=== PATIENT | female | born 1980 | race Two or more races ===

== ENCOUNTER 2018-02-13 13:53 | Emergency (ER) | payer OTHER ==
--- NOTE | 2018-02-13 14:36 | EDPHY ---
General - History Smoking Status: Never smoked Time Seen by Provider: 02/13/18 14:28 Narrative: CHIEF COMPLAINT: Left shoulder pain, left back HISTORY OF PRESENT ILLNESS: Patient presents with complaints of left shoulder and back pain status post injury 3 days ago. She says that she was at work that day when she was attempting to help with patient transfer when she felt a sudden onset of pain on the left side. At the left trapezius, shoulder and down the left back. Moderate to severe at this time. It was mild in the 1st day. She has been taking [id number] medications with no improvement. She has no chest pain or shortness of breath. She did not strike her head on anything. She has no numbness or tingling. No weakness. Minimal improvement rest. No other associated complaints or modifying factors. ESTABLISHED ORTHOPEDIST: None REVIEW OF SYSTEMS: Ten systems reviewed and are negative unless otherwise noted in the HPI PAST MEDICAL HISTORY: Diabetes mellitus PAST SURGICAL HISTORY: No recent surgery SOCIAL HISTORY: Nonsmoker. Lives and works here locally. FAMILY HISTORY: Noncontributory EXAMINATION General Appearance: Alert, no distress HEENT: Normocephalic atraumatic. Neck: Supple. No midline tenderness. There is soft tissue tenderness of the left trapezius and erector spine a region. No meningismus. Cardiovascular: Symmetric radial DP pulses 2+. Back: No crepitus, step-off or deformity. There is no midline tenderness of the thoracic or lumbar spine. There is paraspinous soft tissue tenderness in the left lumbar Neurological: A&O, sensory symmetric, strength symmetric of lower extremities including the great toes. Skin: Warm and dry, no rash. No petechiae or purpura. No ecchymosis. No cellulitis Extremities: Tenderness of the left trapezius and left deltoid that decreases with passive range of motion. Range of motion of shoulders is intact without apprehension. No bony tenderness of the left upper extremity otherwise. Psychiatric: Mood and affect normal DIFFERENTIAL DIAGNOSES: Including but not limited to be held rotator cuff injury, sprain, strain, fracture, trapezius strain, low back strain, low back fracture MDM: 2:30 p.m. With acute left shoulder and low back pain from strain or injury on Monday. She is neuro intact with no midline tenderness of the cervical thoracic spine. She does have some mild left lumbar paraspinous muscular tenderness. She has reproducible pain in the left shoulder over the deltoid and trapezius. I have ordered x-ray of the shoulder low back also ordered ibuprofen. She is in no acute distress with normal neuro examination 3:20 p.m. X-ray as read by me, without the aid of the radiologist, reveals no acute findings. 3:50 p.m. Patient re-evaluated. She is feeling better with the ibuprofen. I do not feel there are any bony abnormality on x-ray and I do feel she is stable for discharge home. I will treat her for soft tissue injury, likely strain and/or rotator cuff injury. She will be discharged with instructions to follow up with worker's compensation [facility] and I provided ED precautions. She is comfortable this plan and discharged home stable condition. 4:15 p.m. Lumbar x-ray has been read as negative for acute findings. The shoulder x-ray has been read as questionable AC widening. This does not clinically correlate with the patient's location of pain or the mechanism. I do feel she is stable for outpatient follow-up with worker's compensation further care. SUPERVISION: This patient was independently evaluated without direct involvement of or examination by the attending physician. ED Precautions: Worsening pain. Erythema, edema, cyanosis, pallor, paresthesia or anesthesia. (Benito Romo) Medical Decision Making: I did not see this patient while she was in the emergency department. However her care was discussed with the PA while the patient was in the department. I agree with treatment plan and management (Seth Kemp) - Diagnostics Imaging Results: Imaging Impressions Lumbar Spine X-Ray 02/13/18 14:36 Impression: 1. Normal lumbar spine 2. 2. Right upper quadrant calcification: Gallbladder or kidney 2. Left Shoulder , 3 Views History: Pain post lifting a heavy object. Findings: The humeral head is well rounded and normally located. No fracture or dislocation is identified. There is no soft tissue calcification or ossification. The coracoclavicular distance looks mildly widened as does the AC joint. There is a small spur projecting medially off the coracoid. Impression: 1, Mild widening of the AC joint of unknown chronicity. If clinically indicated comparison x-rays of the contralateral shoulder might be useful to assess for symmetry. 2. No fracture. Shoulder X-Ray 02/13/18 14:36 Impression: 1. Normal lumbar spine 2. 2. Right upper quadrant calcification: Gallbladder or kidney 2. Left Shoulder , 3 Views History: Pain post lifting a heavy object. Findings: The humeral head is well rounded and normally located. No fracture or dislocation is identified. There is no soft tissue calcification or ossification. The coracoclavicular distance looks mildly widened as does the AC joint. There is a small spur projecting medially off the coracoid. Impression: 1, Mild widening of the AC joint of unknown chronicity. If clinically indicated comparison x-rays of the contralateral shoulder might be useful to assess for symmetry. 2. No fracture. - Objective Vital Signs: Initial Vital Signs Temperature (C) 37.4 C 02/13/18 13:56 Heart Rate 78 02/13/18 13:56 Respiratory Rate 18 02/13/18 13:56 Blood Pressure 131/79 H 02/13/18 13:56 O2 Sat (%) 93 02/13/18 13:56 O2 Delivery Mode Room Air Allergies/Adverse Reactions: No Known Allergies Allergy (Unverified 02/13/18 13:56) Home Medications: Medication Instructions Recorded Cyclobenzaprine [Flexeril 10 MG 10 mg PO TID PRN #15 tab 02/13/18 (*)] Metformin HCl 02/13/18 Medications Given: Discontinued Medications Ibuprofen (Motrin) 600 mg PO EDNOW ONE Stop: 02/13/18 14:39 Last Admin: 02/13/18 14:47 Dose: 600 mg Departure - Departure Disposition: Home, Routine, Self-Care Clinical Impression: Sprain of shoulder, left Qualifiers: Encounter type: initial encounter Shoulder sprain type: unspecified sprain Qualified Code(s): S43.402A - Unspecified sprain of left shoulder joint, initial encounter Low back strain Qualifiers: Encounter type: initial encounter Qualified Code(s): S39.012A - Strain of muscle, fascia and tendon of lower back, initial encounter Condition: Good Instructions: Low Back Strain (ED), Acute Low Back Pain (ED), Shoulder Sprain ( ED) Additional Instructions: 1. Ibuprofen 600 mg every 6-8 hours as needed or Aleve [id number], 2 pills in the morning and 1 in the evening. Do not combine these 2 medications 2. Flexeril as prescribed as needed for muscle spasm or pain 3. Contact your worker's compensation Clinic for outpatient follow-up 4. ED precautions as discussed Referrals: [facility],. [Clinic] - As per Instructions Stand Alone Forms: Work Limited Duty, Work Excuse Prescriptions: Cyclobenzaprine [Flexeril 10 MG (*)] 10 mg PO TID PRN #15 tab PRN Reason: Spasms
[2018-02-13] MEDS ORDERED: IBUPROFEN 600 MG TAB PO ONE (14:38)
[2018-02-13 16:22] VITALS: BP 124/83
== END 2018-02-13 16:23 | disposition home or self-care (01) ==
DX: S43.402A Unspecified sprain of left shoulder joint, initial encounter (principal); E11.9 Type 2 diabetes mellitus without complications; X58.XXXA Exposure to other specified factors, initial encounter; Y92.69 Other specified industrial and construction area as the place of occurrence of the external cause; Y99.0 Civilian activity done for income or pay; Y93.89 Activity, other specified